=== PATIENT | female | born 1950 | race Caucasian/White ===

== ENCOUNTER 2018-01-31 20:35 | Emergency (ER) | payer OTHER ==
[~2018-01-31] VITALS: Ht 162.6 cm; Wt 90.7 kg
[2018-01-31] MEDS ORDERED: LEXAPRO 10 MG T10 M1 PO (20:56)
[2018-01-31] MEDS ORDERED: PRILOSEC 20 MG20 MG PO (20:56)
[2018-01-31 20:57] LABS: URINE BILIRUBIN NEGATIVE (Negative); URINE BLOOD 3+ (Negative); URINE CLARITY CLEAR; URINE COLOR YELLOW; URINE GLUCOSE-RANDOM NEGATIVE (Negative); URINE KETONES NEGATIVE (Negative); URINE LEUKOCYTES-REFLEX NEGATIVE (Negative); URINE NITRITE-REFLEX NEGATIVE (Negative); URINE PROTEIN NEGATIVE (Negative); URINE SPECIFIC GRAVITY >= 1.030 (1.005-1.030); URINE UROBILINOGEN 0.2 E.U./dl (0.2-1.0)
[2018-01-31 21:05] LABS: CRYSTALS None Seen /LPF (None Seen); HYALINE CASTS 0-3 Few /LPF (None Seen); MUCUS >6 Heavy strn/LPF (None Seen); RENAL EPITHELIAL CELLS 0-3 Few /LPF (None Seen); SQUAMOUS 0-3 Few /LPF (0-3); TRANSITIONAL EPITHEL CELL 0-3 Few /LPF (None Seen); URINE WBC-REFLEX 0-5 Rare /HPF (0-5)
[2018-01-31 21:06] LABS: HEMATOCRIT 38.8 % (37.0-47.0); MCH 30.9 pg (26.0-34.0); MCHC 33.4 g/dL (28.0-37.0); MCV 92.5 fL (80.0-100.0); MPV 7.7 fl. (7.2-11.1); NUCLEATED RBCS 0 /100WBC; PLATELET COUNT* 262 thou/uL (150-400); RDW-CV 14.1 % (10.5-14.5); WBC 14.7 thou/uL (4.0-11.0)
[2018-01-31 21:14] LABS: CALCIUM 9.1 mg/dL (8.5-10.1); CREATININE 0.8 mg/dL (0.6-1.3); POTASSIUM 3.8 mmol/L (3.5-5.1)
[2018-01-31 21:18] LABS: ALBUMIN 3.8 g/dL (3.4-5.0); TOTAL BILIRUBIN 0.5 mg/dL (<0.1-1.0); TOTAL PROTEIN 8.1 g/dL (6.4-8.2)
[2018-01-31 21:44] LABS: ABSOLUTE LYMPHOCYTES 0.3 thou/uL (0.8-5.3); ABSOLUTE MONOCYTES 0.3 thou/uL (0.0-1.2); ABSOLUTE NEUTROPHILS 14.1 thou/uL (1.6-8.1)
[2018-01-31 21:45] LABS: PLATELET ESTIMATE ADEQUATE
[2018-01-31] MEDS ORDERED: ZOFRAN4 MG PO (22:29)
[2018-01-31 22:47] VITALS: BP 129/74
--- NOTE | 2018-02-01 14:49 | EKG ---
[place] [address] ELECTROCARDIOGRAM REPORT Name: BETTIE YOUNG Room: [facility]#: [id number] Admission: 01/31/18 Attend Phys: Discharge: 01/31/18 Date of : 46 Report #: [id number] THIS REPORT FOR: //name// [facility] ED Test Date: 2018-01-31 Test Time: 21:54:55 Pat Name: BETTIE YOUNG Department: Room: Gender: F [employer] Machine: : 1950 Requested By: Jose Mckenna Order Number: [id number] MD: Alonzo Marquez Measurements Intervals [place] Rate: 87 P: 74 VA: 142 QRS: -57 QRSD: 96 T: 14 QT: 388 QTc: 467 Interpretive Statements Sinus rhythm Left anterior fascicular block Abnormal R-wave progression, late transition No previous ECG available for comparison Electronically Signed On 02-01-2018 14:49:40 CDT by Alonzo Marquez [email or web address] <ELECTRONICALLY SIGNED> By: Alonzo Marquez MD, [facility] 02/01/18 1449 [id number] Alnozo Marquez MD, FAC /EPI
== END 2018-01-31 22:49 | disposition home or self-care (01) ==
LOC: M.ERS 20:35
PROVIDERS: Nurse Practitioner Family
DX: K52.9 Noninfective gastroenteritis and colitis, unspecified (principal); Z88.2 Allergy status to sulfonamides